=== PATIENT | female | born 1955 | race Caucasian/White ===

== ENCOUNTER 2023-08-10 14:03 | Outpatient (CLI) | payer MEDICARE, SELFPAY | END 2023-08-10 14:04 | disposition home or self-care (01) | LOC: ANHAUDASC 14:08 | PROVIDERS: Visit Provider Otolaryngology | DX: H65.491 Other chronic nonsuppurative otitis media, right ear (principal); H83.8X9 Other specified diseases of inner ear, unspecified ear; H70.11 Chronic mastoiditis, right ear; H90.3 Sensorineural hearing loss, bilateral | CPT/HCPCS: 92557; 92567 ==

== ENCOUNTER 2023-08-22 09:38 | Outpatient (CLI) | payer MEDICARE, SELFPAY ==
--- NOTE | ~2023-08-22 | CT_ITS ---
EXAMINATION: CT IAC/mastoids BI wo con DATE: 08/22/2023 09:56 INDICATION: Mastoiditis with constant right ear pain and pressure TECHNIQUE: Computed tomography (CT) of the temporal bones was performed without intravenous contrast. The dose-length product was 334.66 mGy-cm. COMPARISON: None FINDINGS: No acute intracranial hemorrhage, acute infarction or abnormal extra axial fluid collection in the vi sualized portion of the calvarium. Visualized portion of the ventricles are normal and symmetric. No mass/mass effect. The orbitsand paranasal sinuses are normal. 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 External auditory canal, tympanic membr ane, scutum chain, ossicular chain, oval window, semicircular canals, vestibular aqueduct, internal a uditory canal and vestibular aqueduct all appear normal. The middle ear cavity including Prussak's sp raul is clear with no abnormal fluid or soft tissue densities. The right mastoid is hyperpneumatized w ith trace effusion within the caudal-most mastoid air cell. No abnormalities identified along the cou rse of the facial nerve. Mild temporomandibular osteoarthritis. LEFT TEMPORAL BONE: Small amount of scattered chondrocalcinosis at the left ear. External auditory canal, tympanic membra ne, scutum chain, ossicular chain, oval window, semicircular canals, vestibular aqueduct, internal au ditory canal and vestibular aqueduct all appear normal. The middle ear cavity including Prussak's spa ce is clear with no abnormal fluid or soft tissue densities. Left mastoid air cells are clear. No abn ormalities identified along the course of the facial nerve. Moderate temporomandibular osteoarthritis . IMPRESSION: 1. Trace effusion in the inferior most air cells the hyperpneumatized right mastoid. Otherwise unrema rkable CT of the bilateral temporal bones. Reviewed, dictated and finalized at location A. IMPRESSION: 1. Trace effusion in the inferior most air cells the hyperpneumatized right mas toid. Otherwise unremarkable CT of the bilateral temporal bones.
== END 2023-08-22 09:39 ==
LOC: GOSHIMG 09:39
PROVIDERS: Visit Provider Otolaryngology
DX: H65.491 Other chronic nonsuppurative otitis media, right ear (principal); H70.11 Chronic mastoiditis, right ear
CPT/HCPCS: 70480